=== PATIENT | female | born 1980 | race Caucasian/White ===

== ENCOUNTER 2019-12-31 17:29 | Emergency (ER) | payer BC ==
[~2019-12-31] VITALS: Ht 167.6 cm; Wt 68.2 kg
[2019-12-31 17:57] VITALS: TEMP 97.5
[2019-12-31 19:13] LABS: BASO % 0.5 % (0.0-2.0); EOS # 0.1 (0.0-0.7); HEMATOCRIT 39.2 % (37.0-47.0); HEMOGLOBIN 13.2 g/dl (12.5-16.0); LYMPH # 2.4 (1.2-3.4); LYMPH % 30.2 % (20.0-51.0); MEAN CELL VOLUME 90 fl (80.0-100.0); MEAN CORPUSCULAR HEMOGLOBIN 30 pg (27.0-31.0); MEAN CORPUSCULAR HGB CONC 34 g/dl (33.0-37.0); MONO # 0.5 (0.1-0.6); MONO % 6.1 % (1.7-9.3); PLATELET COUNT 195 K/mm3 (130-400); RED BLOOD COUNT 4.38 M/mm3 (4.10-5.30); REDCELL DISTRIBUTION WIDTH-CV 12.6 % (11.5-14.5)
[2019-12-31 19:36] LABS: ALANINE AMINOTRANSFERASE 15 U/L (4-34); ALBUMIN 4.5 gm/dL (3.5-5.0); ALKALINE PHOSPHATASE 45 U/L (50-136); ANION GAP 9 mmol/L (7-16); AST,SGOT 23 U/L (15-37); BILIRUBIN,TOTAL 0.4 mg/dL (0.0-1.0); BLOOD UREA NITROGEN 14 mg/dL (7-17); CALCIUM 9.1 mg/dL (8.4-10.2); CARBON DIOXIDE 27 mmol/L (22-30); CHLORIDE 102 mmol/L (98-107); CREATININE, serum 0.62 (0.52-1.25); GLUCOSE 91 mg/dL (74-106); LIPASE 57 U/L (23-300); POTASSIUM 3.9 mmol/L (3.4-5.0); SODIUM 137 mmol/L (137-145)
[2019-12-31 19:43] LABS: C-REACTIVE PROTEIN < 0.5 mg/dL (0.0-0.9)
[2019-12-31 19:45] LABS: TROPONIN-I < 0.012 ng/mL (0.000-0.035)
[2019-12-31 21:23] VITALS: BP 115/85; PULSE 73
== END 2019-12-31 21:23 | disposition home or self-care (01) ==
LOC: COL.ER 17:29
PROVIDERS: Emergency Medicine
DX: R07.9 Chest pain, unspecified (principal); Z86.59 Personal history of other mental and behavioral disorders
CPT/HCPCS: J7030

== ENCOUNTER 2020-10-22 11:26 | Emergency (ER) | payer SELFPAY ==
[~2020-10-22] VITALS: Ht 167.6 cm; Wt 71.4 kg
[2020-10-22 11:27] VITALS: TEMP 97.9
[2020-10-22] MEDS ORDERED: XYREM500 MG/ML PO (11:33)
[2020-10-22 16:39] VITALS: BP 112/80; PULSE 103
== END 2020-10-22 16:40 | disposition short-term general hospital (02) ==
LOC: COL.ER 11:26
PROVIDERS: Physician Assistant
DX: S82.142A Displaced bicondylar fracture of left tibia, initial encounter for closed fracture (principal); V00.831A Fall from motorized mobility scooter, initial encounter
CPT/HCPCS: J1170; J2060; J3010; L1846

== ENCOUNTER → 2021-05-20 | Outpatient (CLI) | payer OTHER ==
[~2021-05-20] MED LIST: XYREM500 MG/ML PO
== END ==
LOC: COL.VAS 05-05 08:00
DX: M79.605 Pain in left leg (principal)